=== PATIENT | female | born 1955 | race Caucasian/White ===

== ENCOUNTER 2016-11-05 07:12 | Outpatient (CLI) ==
--- NOTE | 2016-11-05 08:21 | US ---
EXAM: ULTRASOUND ABDOMEN LIMITED HISTORY: Right upper quadrant pain FINDINGS: Ultrasound abdomen, limited. Liver size was normal at about 11 cm. The liver parenchyma demonstrated normal sonographic appearance without evidence of intrahepatic biliary dilatation or fo peter lesion. Patent and hepatopedal portal vein. Diffuse posterior acoustic shadowing of the gallbladder suggesting a gallbladder full of stones vers us less likely porcelain gallbladder. The wall could not be measured. Common bile duct diameter is mildly dilated at about 0.7 cm. Visualized pancreas within normal limits. No ascites. IMPRESSION: Diffuse posterior acoustic shadowing of the gallbladder suggesting a gallbladder full of stones versus less likely porcelain gallbladder. The wall could not be measured. Common bile duct diameter is mildly dilated at about 0.7 cm.
== END 2016-11-05 07:13 | disposition home or self-care (01) ==
LOC: RAD 07:12
PROVIDERS: ATTEND Family Medicine
DX: R74.8 Abnormal levels of other serum enzymes (principal)

== ENCOUNTER 2017-02-09 15:06 | Outpatient (CLI) ==
[2017-02-09 15:56] LABS: BASOPHILS % (AUTO) 0.6 % (0.0-3.0); EOSINOPHILS # (AUTO) 0.2 K/ul (0.0-0.7); EOSINOPHILS % (AUTO) 3.4 % (0.0-7.0); HEMATOCRIT 38.2 % (37.0-47.0); HEMOGLOBIN 12.9 g/dl (12.0-16.0); IMMATURE GRANULOCYTE % (AUTO) 0.3 % (0.0-5.0); LYMPHOCYTES # (AUTO) 3.2 K/uL (0.60-3.4); LYMPHOCYTES % (AUTO) 45.2 (10.0-50.0); MEAN CORPUSCULAR HGB CONC 33.8 (31.8-35.4); MEAN CORPUSCULAR VOLUME 88.8 fl (81.0-99.0); MONOCYTES # (AUTO) 0.6 K/uL (0.4-2.0); MONOCYTES % (AUTO) 8.1 (0-10); NEUTROPHILS % (AUTO) 42.4; PLATELET COUNT 96 10^3/uL (140-440); WHITE BLOOD COUNT 7.15 K/ul (4.6-10.2)
[2017-02-09 16:28] LABS: ALBUMIN 4.2 g/dL (3.4-5.0); ALBUMIN/GLOBULIN RATIO 1.35; ANION GAP 18.3; BILIRUBIN,TOTAL 0.37 mg/dL (0.00-1.20); BUN/CREATININE RATIO 23.07; CALCIUM 9.6 mg/dL (8.2-10.2); CREATININE 0.78 mg/dL (0.60-1.30); POTASSIUM 4.3 mmol/L (3.5-5.10); TOTAL PROTEIN 7.3 g/dL (5.8-8.1)
== END 2017-02-09 15:07 | disposition home or self-care (01) ==
LOC: LAB 15:06
PROVIDERS: ATTEND Surgery
DX: K80.20 Calculus of gallbladder without cholecystitis without obstruction (principal); Z01.812 Encounter for preprocedural laboratory examination
CPT/HCPCS: 36415; 80053; 85025

== ENCOUNTER 2017-06-06 14:43 | Emergency (ER) ==
[2017-06-06 14:51] VITALS: BP 133/74; TEMP 102.7; BMI 37.9
[2017-06-06 16:45] LABS: FLU INTERNAL QC INTERNAL QC VALID; RAPID FLU A POSITIVE (NEGATIVE); RAPID FLU B NEGATIVE (NEGATIVE)
--- NOTE | 2017-06-06 17:00 | ED.PDOC ---
General ED Provider: Dr. TIM VALENZUELA Chief Complaint: Sore Throat Stated Complaint: Onset with body aches and Fever. Developed a sore throat and cough with yellow light brown mucous today. Time Seen by Physician: 16:58 Mode of Arrival: Walk-In Information Source: Patient Exam Limitations: No limitations Primary Care Provider: ENRIKE TRACY Nursing and Triage Documentation Reviewed and Agree: Yes EENT Complaint Exam - Throat Complaint/Exam Onset/Duration: 3 days Symptoms Are: Still present Timimg: Constant Initial Severity: Moderate Current Severity: Moderate Aggravating: Reports: Eating Associated Signs and Symptoms: Denies: Fever, Dysphagia, Drooling, Foreign body sensation, Chills, Cough, Wheezing, Hoarseness, Sinus discomfort, Nasal congestion, Difficulty breathing, Lethargy, Irritability, Decreased activity, Vomiting, Diarrhea, Decreased hearing, Ear drainage Uvula Midline: No Yudelka-tonsillar Fluctuence: No Scarlatinaform Rash Present: No Lesions: Absent: Lip, Gums, Tongue, Buccal Mucosa, Pharynx Exanthem: Absent: Lip, Gums, Tongue, Buccal Mucosa, Pharynx Vesicles: Absent: Lip, Gums, Tongue, Buccal Mucosa, Pharynx Stridor Present: No Sinus Tenderness Present: No Tonsillar Hypertrophy Present: No Tonsillar Exudate Present: No Yudelka-tonsillar Swelling Present: No Adenopathy Present: No Splenomegaly Present: No Differential Diagnoses: Influenza, Pharyngitis, Tonsillitis, URI Review of Systems - Review Of Systems Constitutional: Reports: Fever, Malaise Eyes: Reports: No symptoms Ears, Nose, Mouth, Throat: Reports: Throat pain Respiratory: Reports: No symptoms Cardiac: Reports: No symptoms GI: Reports: No symptoms : Reports: No symptoms Musculoskeletal: Reports: Muscle pain Skin: Reports: No symptoms Neurological: Reports: Anxiety Endocrine: Reports: No symptoms Hematologic/Lymphatic: Reports: No symptoms All Other Systems: Reviewed and Negative Past Medical History - Past Medical History Previously Healthy: Yes Endocrine: Reports: Hypothyroid Cardiovascular: Reports: None Respiratory: Reports: None Hematological: Reports: None Gastrointestinal: Reports: None Genitourinary: Reports: None Neuro/Psych: Reports: None Musculoskeletal: Reports: None Cancer: Reports: None Last Menstrual Period: menopause - Surgical History General Surgical History: Reports: Tubal ligation, Cholecystectomy, Orthopedic ( ankle ) - Family History Family History: Reports: None - Social History Smoking Status: Never smoker Hx Substance Use: No Alcohol Screening: None Physical Exam - Physical Exam Appearance: Ill-appearing, Obese Ill-appearing: Moderate Pain Distress: Mild Eyes: PADMINI, EOMI, Conjunctiva clear Neck: Supple Respiratory: Airway patent, Breath sounds clear, Breath sounds equal, Respirations nonlabored Cardiovascular: RRR, Pulses normal, No rub, No murmur GI/: Soft, Nontender, No masses, Bowel sounds normal, No Organomegaly Musculoskeletal: Normal strength, ROM intact, No edema, No calf tenderness Skin: Warm, Dry, Normal color Neurological: Sensation intact, Motor intact, Reflexes intact, Cranial nerves intact, Alert, Oriented Psychiatric: Anxious Critical Care Note - Critical Care Note Total Time (mins): 0 Course - Course Orders, Labs, Meds: Lab Review 06/06/17 15:40 Influenza A (Rapid) Positive H Influenza B (Rapid) Negative Orders Category Date Time Status FLU A & B RAPID TEST [RAPID FLU A/B] Stat LAB 06/06/17 15:40 Completed MOLECULAR GROUP A STREP Stat LAB 06/06/17 15:40 Results STREP SCREEN Stat LAB 06/06/17 15:40 Results Vital Signs: Temp Pulse Resp BP Pulse Ox 06/06/17 14:43 102.7 F H 84 16 133/74 94 L Departure - Departure Time of Disposition: 16:58 Disposition: HOME SELF-CARE Discharge Problem: Flu syndrome Instructions: Influenza (ED) Condition: Stable Pt referred to PMD for follow-up: Yes Additional Instructions: Take medications as prescribed Follow up with PCP in 3 days Alternate Tylenol or Motrin as needed for fever Prescriptions: Oseltamivir Phosphate [Tamiflu] 75 mg PO Q12HR #10 capsule Allergies/Adverse Reactions: Allergies No Known Allergies Allergy (Unverified 06/06/17 14:51) Home Medications: Ambulatory Orders Levothyroxine Sodium 50 mcg PO DAILY 06/06/17 Meloxicam [Mobic] 15 mg PO DAILY 06/06/17 Oseltamivir Phosphate [Tamiflu] 75 mg PO Q12HR #10 capsule 06/06/17 Pantoprazole Sodium 40 mg PO DAILY 06/06/17 Ranitidine HCl 300 mg PO BID 06/06/17 Disposition Discussed With: Patient
== END 2017-06-06 17:14 | disposition home or self-care (01) ==
LOC: ED 14:43
DX: J09.X2 Influenza due to identified novel influenza A virus with other respiratory manifestations (principal)
CPT/HCPCS: 87651; 87804; 87880; 99283